=== PATIENT | female | born 1960 | race Caucasian/White ===

== ENCOUNTER 2016-08-17 05:37 | Inpatient (IN) | payer OTHER ==
[~2016-08-17] VITALS: Ht 182.9 cm; Wt 117.5 kg
[~2016-08-17 05:37] MED LIST: AMBIEN CR12.5 MG PO; AMBIEN CR6.25 MG PO; Aranesp SC; BISACODYL5 MG PO; Bactrim,Septra DS 80 PO; CIPRO250 MG PO; CIPRO500 MG PO; Cipro PO; DILAUDID2 MG PO; DILAUDID4 MG PO; DOCUSATE SODIU100 MG PO; Elavil PO; Epogen,Procrit SQ; FEOSOL325 MG PO; FLAGYL500 MG PO; FLORA-Q CAPSUL1 EACH PO; FOLVITE1 M1 PO; HUMALOG100 UNIT/2 SC; INVANZ1 GM IM; INVANZ1 GM IV; INVanz 1 gm/NaCl 0.9 IV; INVanz IV; IPRATR-ALBUTEROL3 ML IH; IRON; KEFLEX500 MG PO; LANTUS; LANTUS 10100 UNITS/ SC; LANTUS 3 M100 UNITS/ SC; LANTUS 3 M100 UNITS1 SC; LANTUS 3 M100 UNITS1 SQ; LANTUS100 UNIT/1 SC; LEVEMIR FL100 UNIT/1 SC; LIPITOR10 MG PO; Levaquin PO; METRONIDAZOLE500 MG PO; MILK OF MAGNESI10 ML PO; MULTIVITAMIN1 EAC2 PO; NABI650T PO; NON-ASPIRIN EX500 M2 PO; NOVOLOG; NOVOLOG 10100 UNITS/ SC; NOVOLOG PE100 UNITS/ SC; PERCOCET 5/31 TABLET PO; PROCRIT; PROGRAF; PROGRAF PO; PROGRAF0.5 MG PO; PYRIDIUM PO; PYRIDIUM200 MG PO; Prograf PO; Pyridium PO; RAPAMUNE; RAPAMUNE1 MG PO; ROCEPHIN1000 MG IM; SENNA8.6 MG PO; SODIUM BICARBO325 M1 PO; SODIUM BICARBO325 MG PO; Sodium Bicarbonate PO; TRAMADOL HCL50 MG PO; TYLENOL EXTRA500 MG PO; Tylenol Regular Stre PO; VALIUM5 MG PO; VANCOCIN HCL250 MG PO; VITAMIN D PO; VITAMIN D250000 UNIT PO; Vitamin B-12 PO; Vitamin D, Drisdol PO; ZINC LOZENGES PO; ZINC PO; ZOFRAN4 MG PO; ZOLPIDEM TART12.5 MG PO; ZYVOX600 MG PO; Zofran IV; Zofran PO; oxyCODONE PO
[2016-08-17 06:33] LABS: ADD MIUA? YES; BILIRUBIN NEGATIVE; BLOOD NEGATIVE; COLOR YELLOW ((YELLOW)); GLUCOSE (STRIP) NEGATIVE; KETONES NEGATIVE; LEUKOCYTES LARGE; NITRITE NEGATIVE; PROTEIN (STRIP) NEGATIVE; SPECIFIC GRAVITY 1.014 (1.000-1.030); UROBILINOGEN 0.2 MG/DL (0.2-1.0)
[2016-08-17 06:41] LABS: HEMATOCRIT 36.5 % (36.0-46.0); MCH 27.6 PG (29.0-34.0); MCHC 31.8 G/DL (30.0-36.0); MCV 86.7 FL (83-99); MEAN PLAT.VOLUME 10.1 uM^3 (9.5-12.4); PLATELET COUNT 244 K/uL (156-360); RED BLOOD COUNT 4.21 M/uL (3.80-5.20); WHITE BLOOD COUNT 12.3 K/uL (4.1-10.2)
[2016-08-17 06:45] LABS: BACTERIA RARE /HPF; EPITHELIAL CELLS RARE /HPF; HYALINE CASTS 0-5 /LPF; MUCUS NONE SEEN /LPF; UCUL ADDED? YES; WHITE BLOOD CELLS TNTC /HPF (0-5)
[2016-08-17 07:14] LABS: ANION GAP 10 MEQ/L (2-14); CHLORIDE 108 MEQ/L (99-109); POTASSIUM 4.8 MEQ/L (3.7-5.4); SAMPLE HEMOLYSIS CHECK 0; SAMPLE ICTERIC CHECK 0; SAMPLE LIPEMIA CHECK 0; SODIUM 140 MEQ/L (136-147)
[2016-08-17 07:19] LABS: GFR ESTIMATE (CALCULATED) 22 mL/min/; GLUCOSE 190 mg/dL (70-99); UREA NITROGEN (BUN) 55 mg/dL (9-23)
[2016-08-17 07:24] LABS: TROP-I INTERPRETATION NEGATIVE; TROPONIN-I < 0.01 ng/mL (0.0-0.30)
[2016-08-17] MEDS ORDERED: PROGRAF0.5 MG PO (07:57)
[2016-08-17] MEDS ORDERED: NABI650T PO (07:58)
[2016-08-17] MEDS ORDERED: ERGOCALCIF50000 UNIT PO (07:58)
[2016-08-17 11:05] VITALS: BP 125/70
[2016-08-17 16:00] VITALS: BP 118/65
[2016-08-17 19:41] VITALS: BP 120/71
[2016-08-17 23:34] VITALS: BP 115/56
[2016-08-18 03:41] VITALS: BP 135/71
[2016-08-18 07:05] VITALS: BP 109/55
[2016-08-18 07:13] LABS: EOSINOPHIL (%) 2.6 % (0-5); EOSINOPHIL COUNT 0.3 K/uL (0-0.3); IMMATURE GRANULOCYTE (%) 0.3 % (0.0-0.7); LYMPHOCYTE COUNT 2.3 K/uL (1.0-2.8); MCHC 30.9 G/DL (30.0-36.0); MONOCYTE (%) 5.7 % (3-12); MONOCYTE COUNT 0.5 K/uL (0-0.8); NEUTROPHIL (%) 66.5 % (45-76); NEUTROPHIL COUNT 6.3 K/uL (1.8-6.4); PLATELET COUNT 181 K/uL (156-360); RBC DIS.WIDTH-CV 14.4 % (11.8-14.6); RBC DIS.WIDTH-SD 47.6 % (39-53); RED BLOOD COUNT 3.64 M/uL (3.80-5.20); WHITE BLOOD COUNT 9.5 K/uL (4.1-10.2)
[2016-08-18 07:15] LABS: MCV 90.7 FL (83-99)
[2016-08-18 07:30] LABS: ANION GAP 5 MEQ/L (2-14); CHLORIDE 111 MEQ/L (99-109); GFR ESTIMATE (CALCULATED) 26 mL/min/; POTASSIUM 4.9 MEQ/L (3.7-5.4); SAMPLE HEMOLYSIS CHECK 0; SAMPLE ICTERIC CHECK 0; SAMPLE LIPEMIA CHECK 0; SODIUM 142 MEQ/L (136-147); UREA NITROGEN (BUN) 40 mg/dL (9-23)
[2016-08-18 07:34] LABS: GLUCOSE 113 mg/dL (70-99)
[2016-08-18 11:29] VITALS: BP 124/78
[2016-08-18 12:06] LABS: POINT-OF-CARE METER ID UU14162508
[2016-08-18 16:13] VITALS: BP 129/70
[2016-08-18 16:46] LABS: POINT-OF-CARE METER ID UU14162508
[2016-08-18 19:42] VITALS: BP 120/57
[2016-08-18 21:21] LABS: POINT-OF-CARE METER ID UU14162508
[2016-08-18 23:47] VITALS: BP 110/63
[2016-08-19 03:56] VITALS: BP 119/59
[2016-08-19 06:37] VITALS: BP 134/79
[2016-08-19 06:55] LABS: ABSOLUTE RETICULOCYTE CT. 0.06 M/uL (0.02-0.08); IMM.RETIC FRACTION 9.1 % (3-19); RETICULOCYTE COUNT 1.7 % (0.5-1.8)
[2016-08-19 07:04] LABS: HEMATOCRIT 30.8 % (36.0-46.0); MCH 27.8 PG (29.0-34.0); MCHC 30.8 G/DL (30.0-36.0); MCV 90.1 FL (83-99); RBC DIS.WIDTH-CV 14.3 % (11.8-14.6); RBC DIS.WIDTH-SD 47.3 % (39-53); RED BLOOD COUNT 3.42 M/uL (3.80-5.20); WHITE BLOOD COUNT 8.5 K/uL (4.1-10.2)
[2016-08-19 07:18] LABS: ALKALINE PHOSPHATASE 75 IU/L (3-129); ANION GAP 6 MEQ/L (2-14); CHLORIDE 113 MEQ/L (99-109); GFR ESTIMATE (CALCULATED) 28 mL/min/; GLUCOSE 95 mg/dL (70-99); IRON 39 MCG/DL (35-150); POTASSIUM 4.8 MEQ/L (3.7-5.4); SAMPLE HEMOLYSIS CHECK 0; SAMPLE ICTERIC CHECK 0; SAMPLE LIPEMIA CHECK 0; SODIUM 141 MEQ/L (136-147); TOTAL BILIRUBIN 0.3 MG/DL (0.0-1.0); UREA NITROGEN (BUN) 33 mg/dL (9-23)
[2016-08-19 07:56] LABS: ABS NEUTROPHIL COUNT 5.34; EOSINOPHIL ABS CT 0.25; MEAN PLAT.VOLUME 10.1 uM^3 (9.5-12.4); PLAT.SUFFICIENCY ADEQUATE; PLATELET COUNT 191 K/uL (156-360); USER ID STC
[2016-08-19 08:30] LABS: FERRITIN 585 NG/ML (10-291)
[2016-08-19 09:59] LABS: DELETE MACHINE DIFF? YES
[2016-08-19 12:22] LABS: POINT-OF-CARE METER ID UU14162508
[2016-08-19 16:16] VITALS: BP 126/68
[2016-08-19 20:00] VITALS: BP 129/69
[2016-08-19 21:28] LABS: POINT-OF-CARE METER ID UU14162508
[2016-08-20] VITALS: BP 137/66
[2016-08-20 04:00] VITALS: BP 137/84
[2016-08-20 07:10] LABS: EOSINOPHIL (%) 3.5 % (0-5); EOSINOPHIL COUNT 0.3 K/uL (0-0.3); HEMATOCRIT 30.8 % (36.0-46.0); IMMATURE GRANULOCYTE (%) 0.1 % (0.0-0.7); LYMPHOCYTE COUNT 2.4 K/uL (1.0-2.8); MCH 27.4 PG (29.0-34.0); MCHC 30.5 G/DL (30.0-36.0); MCV 89.8 FL (83-99); MEAN PLAT.VOLUME 10.3 uM^3 (9.5-12.4); MONOCYTE (%) 5.5 % (3-12); MONOCYTE COUNT 0.4 K/uL (0-0.8); NEUTROPHIL (%) 58.5 % (45-76); NEUTROPHIL COUNT 4.4 K/uL (1.8-6.4); PLATELET COUNT 186 K/uL (156-360); RBC DIS.WIDTH-CV 13.9 % (11.8-14.6); RED BLOOD COUNT 3.43 M/uL (3.80-5.20); WHITE BLOOD COUNT 7.5 K/uL (4.1-10.2)
[2016-08-20 07:36] VITALS: BP 137/63
[2016-08-20 07:43] LABS: ALKALINE PHOSPHATASE 76 IU/L (3-129); ANION GAP 7 MEQ/L (2-14); CHLORIDE 112 MEQ/L (99-109); GFR ESTIMATE (CALCULATED) 29 mL/min/; GLUCOSE 98 mg/dL (70-99); POTASSIUM 4.7 MEQ/L (3.7-5.4); SAMPLE HEMOLYSIS CHECK 0; SAMPLE ICTERIC CHECK 0; SAMPLE LIPEMIA CHECK 0; SODIUM 141 MEQ/L (136-147); UREA NITROGEN (BUN) 32 mg/dL (9-23)
[2016-08-20 08:02] LABS: TOTAL BILIRUBIN 0.2 MG/DL (0.0-1.0)
[2016-08-20 12:21] LABS: POINT-OF-CARE METER ID UU14162508
== END 2016-08-20 13:57 | disposition home or self-care (01) | DRG 690 ==
LOC: EME 05:37 → 2EAST 07:33 → EDOF 07:33 → 2EASTP 10:41 → 2EAST 08-19 16:11
PROVIDERS: Emergency Medicine; Hospitalist; Internal Medicine; Nurse Practitioner Adult Health
DX: N39.0 Urinary tract infection, site not specified (principal); N17.9 Acute kidney failure, unspecified; Z94.0 Kidney transplant status; I12.9 Hypertensive chronic kidney disease with stage 1 through stage 4 chronic kidney disease, or unspecified chronic kidney disease; N18.3 Chronic kidney disease, stage 3 (moderate); E11.22 Type 2 diabetes mellitus with diabetic chronic kidney disease; D64.9 Anemia, unspecified; E66.9 Obesity, unspecified; Z68.35 Body mass index [BMI] 35.0-35.9, adult; Z90.5 Acquired absence of kidney; Z88.0 Allergy status to penicillin; Z88.5 Allergy status to narcotic agent; Z87.440 Personal history of urinary (tract) infections
CPT/HCPCS: 71010; 80048; 80053; 81003; 82607; 82728; 82746; 82948; 83540; 83605; 84466; 84484; 85025; 85027; 85045; 87040; 87086; 93005; 99281; 99285; J1335; J1644; J1815; J2270; J2405; J7030; J7050; J7507

== ENCOUNTER 2016-09-24 11:21 | Inpatient (IN) | payer OTHER ==
[~2016-09-24] VITALS: Ht 182.9 cm; Wt 117.3 kg
[~2016-09-24 11:21] MED LIST changes: +ERGOCALCIF50000 UNIT PO
[2016-09-24 13:17] LABS: HEMATOCRIT 41.9 % (36.0-46.0); MCH 27.6 PG (29.0-34.0); MCHC 30.8 G/DL (30.0-36.0); MCV 89.5 FL (83-99); MEAN PLAT.VOLUME 10.2 uM^3 (9.5-12.4); PLATELET COUNT 267 K/uL (156-360); RBC DIS.WIDTH-CV 13.9 % (11.8-14.6); RBC DIS.WIDTH-SD 45.2 % (39-53); RED BLOOD COUNT 4.68 M/uL (3.80-5.20); WHITE BLOOD COUNT 9.3 K/uL (4.1-10.2)
[2016-09-24 13:25] LABS: CHLORIDE 111 mEq/L (99-109); POTASSIUM 4.9 mEq/L (3.7-5.4); SODIUM 138 mEq/L (136-147)
[2016-09-24 13:27] LABS: GLUCOSE 173 mg/dL (70-99)
[2016-09-24 13:28] LABS: ANION GAP 15 MEQ/L (2-14)
[2016-09-24 13:29] LABS: TOTAL BILIRUBIN 0.3 mg/dL (0.0-1.0)
[2016-09-24 13:30] LABS: ALKALINE PHOSPHATASE 95 IU/L (3-129)
[2016-09-24 13:31] LABS: GFR ESTIMATE (CALCULATED) 11 mL/min/
[2016-09-24 13:32] LABS: UREA NITROGEN (BUN) 83 mg/dL (9-23)
[2016-09-24 13:42] LABS: QUANTITATIVE HCG < 4.0 MIU/ML
[2016-09-24 13:47] LABS: LIPASE 23 U/L (1.0-51.0)
[2016-09-24 15:51] LABS: ADD MIUA? YES; BILIRUBIN NEGATIVE; BLOOD SMALL; COLOR YELLOW ((YELLOW)); GLUCOSE (STRIP) NEGATIVE; KETONES 5; LEUKOCYTES LARGE; NITRITE NEGATIVE; PROTEIN (STRIP) 30; SPECIFIC GRAVITY 1.013 (1.000-1.030); UROBILINOGEN 0.2 MG/DL (0.2-1.0)
[2016-09-24 15:59] LABS: BACTERIA RARE /HPF; EPITHELIAL CELLS 1+ /HPF; MUCUS TRACE /LPF; RED BLOOD CELLS 0-5 /HPF (0-5); UCUL ADDED? NO; WHITE BLOOD CELLS 20-30 /HPF (0-5)
[2016-09-24 16:26] LABS: CASTS PRESENT /LPF
[2016-09-24 22:21] LABS: INFLUENZA A VIRAL ANTIGEN NEGATIVE; INFLUENZA B VIRAL ANTIGEN NEGATIVE
[2016-09-24 22:49] LABS: CHLORIDE 112 mEq/L (99-109); POTASSIUM 4.3 mEq/L (3.7-5.4); SODIUM 140 mEq/L (136-147)
[2016-09-24 22:50] LABS: C DIFF TOXIN POSITIVE (NEGATIVE); PROBE CHECK PASS
[2016-09-24 22:51] LABS: GLUCOSE 115 mg/dL (70-99)
[2016-09-24 22:52] LABS: ANION GAP 12 MEQ/L (2-14)
[2016-09-24 22:55] LABS: GFR ESTIMATE (CALCULATED) 14 mL/min/; UREA NITROGEN (BUN) 79 mg/dL (9-23)
[2016-09-24 23:30] VITALS: BP 105/62
[2016-09-25 01:42] VITALS: BP 98/48
[2016-09-25 08:21] LABS: ANION GAP 13 MEQ/L (2-14); CHLORIDE 113 MEQ/L (99-109); GFR ESTIMATE (CALCULATED) 14 mL/min/; GLUCOSE 96 mg/dL (70-99); POTASSIUM 4.6 MEQ/L (3.7-5.4); SAMPLE HEMOLYSIS CHECK 0; SAMPLE ICTERIC CHECK 0; SAMPLE LIPEMIA CHECK 0; SODIUM 141 MEQ/L (136-147); UREA NITROGEN (BUN) 75 mg/dL (9-23)
[2016-09-25 08:30] VITALS: BP 128/60
[2016-09-25 11:44] LABS: IRON 45 MCG/DL (35-150)
[2016-09-25 11:59] LABS: URIC ACID 14.9 mg/dL (3.1-9.2)
[2016-09-25 12:23] VITALS: BP 118/80
[2016-09-25 15:51] VITALS: BP 128/66
[2016-09-25 17:07] LABS: ANION GAP 11 MEQ/L (2-14); CHLORIDE 113 MEQ/L (99-109); POTASSIUM 4.5 MEQ/L (3.7-5.4); SAMPLE HEMOLYSIS CHECK 0; SAMPLE ICTERIC CHECK 0; SAMPLE LIPEMIA CHECK 0; SODIUM 142 MEQ/L (136-147)
[2016-09-25 17:13] LABS: GFR ESTIMATE (CALCULATED) 17 mL/min/; GLUCOSE 98 mg/dL (70-99); UREA NITROGEN (BUN) 69 mg/dL (9-23)
[2016-09-25 20:01] VITALS: BP 128/60
[2016-09-25 22:46] LABS: ANION GAP 12 MEQ/L (2-14); CHLORIDE 113 MEQ/L (99-109); POTASSIUM 4.7 MEQ/L (3.7-5.4); SAMPLE HEMOLYSIS CHECK 0; SAMPLE ICTERIC CHECK 0; SAMPLE LIPEMIA CHECK 0; SODIUM 141 MEQ/L (136-147)
[2016-09-25 22:51] LABS: GFR ESTIMATE (CALCULATED) 17 mL/min/; GLUCOSE 105 mg/dL (70-99); UREA NITROGEN (BUN) 65 mg/dL (9-23)
[2016-09-25 23:20] VITALS: BP 118/58
[2016-09-26 04:04] VITALS: BP 136/63
[2016-09-26 04:49] LABS: EOSINOPHIL (%) 1.4 % (0-5); EOSINOPHIL COUNT 0.1 K/uL (0-0.3); HEMATOCRIT 34.2 % (36.0-46.0); IMMATURE GRANULOCYTE (%) 0.4 % (0.0-0.7); INSTRUMENT ABS NEUTROPHIL CT 4.3 K/uL; LYMPHOCYTE COUNT 2.1 K/uL (1.0-2.8); MCH 27.6 PG (29.0-34.0); MCHC 31.3 G/DL (30.0-36.0); MCV 88.1 FL (83-99); MEAN PLAT.VOLUME 10.1 uM^3 (9.5-12.4); MONOCYTE (%) 7.4 % (3-12); MONOCYTE COUNT 0.5 K/uL (0-0.8); NEUTROPHIL (%) 61.1 % (45-76); NEUTROPHIL COUNT 4.3 K/uL (1.8-6.4); PLATELET COUNT 223 K/uL (156-360); RBC DIS.WIDTH-CV 13.9 % (11.8-14.6); RED BLOOD COUNT 3.88 M/uL (3.80-5.20); WHITE BLOOD COUNT 7.1 K/uL (4.1-10.2)
[2016-09-26 04:56] LABS: CHLORIDE 114 mEq/L (99-109); POTASSIUM 4.6 mEq/L (3.7-5.4); SODIUM 143 mEq/L (136-147)
[2016-09-26 04:57] LABS: MAGNESIUM 1.4 mg/dL (1.3-2.7)
[2016-09-26 04:58] LABS: GLUCOSE 110 mg/dL (70-99)
[2016-09-26 05:00] LABS: ANION GAP 11 MEQ/L (2-14)
[2016-09-26 05:02] LABS: GFR ESTIMATE (CALCULATED) 17 mL/min/
[2016-09-26 05:03] LABS: UREA NITROGEN (BUN) 65 mg/dL (9-23)
[2016-09-26 07:45] LABS: INTACT PARATHYROID HORMONE 264 pg/mL (10-69)
[2016-09-26 08:43] VITALS: BP 147/85
[2016-09-26 12:33] VITALS: BP 120/75
[2016-09-26 16:54] VITALS: BP 121/72
[2016-09-26 21:27] LABS: POINT-OF-CARE METER ID UU14162508
[2016-09-27 08:00] VITALS: BP 124/74
[2016-09-27 08:34] LABS: HEMATOCRIT 30.1 % (36.0-46.0); MCH 27.4 PG (29.0-34.0); MCHC 30.9 G/DL (30.0-36.0); MCV 88.8 FL (83-99); MEAN PLAT.VOLUME 10.2 uM^3 (9.5-12.4); PLATELET COUNT 190 K/uL (156-360); RBC DIS.WIDTH-SD 45.3 % (39-53); RED BLOOD COUNT 3.39 M/uL (3.80-5.20); WHITE BLOOD COUNT 6.4 K/uL (4.1-10.2)
[2016-09-27 09:06] LABS: ANION GAP 10 MEQ/L (2-14); CHLORIDE 113 MEQ/L (99-109); GFR ESTIMATE (CALCULATED) 20 mL/min/; GLUCOSE 137 mg/dL (70-99); MAGNESIUM 1.4 mg/dl (1.3-2.7); POTASSIUM 4.2 MEQ/L (3.7-5.4); SAMPLE HEMOLYSIS CHECK 0; SAMPLE ICTERIC CHECK 0; SAMPLE LIPEMIA CHECK 0; SODIUM 145 MEQ/L (136-147); UREA NITROGEN (BUN) 50 mg/dL (9-23)
[2016-09-27] MEDS ORDERED: VANCOMYCIN HCL125 MG PO (09:31)
[2016-09-27 09:52] LABS: EOSINOPHIL (%) 3.5 % (0-5); EOSINOPHIL COUNT 0.2 K/uL (0-0.3); HEMATOLOGY COMMENT 1 SMEAR COMPATIBLE; IMMATURE GRANULOCYTE (%) 0.3 % (0.0-0.7); INSTRUMENT ABS NEUTROPHIL CT 3.5 K/uL; LYMPHOCYTE COUNT 2.2 K/uL (1.0-2.8); MONOCYTE (%) 6.6 % (3-12); MONOCYTE COUNT 0.4 K/uL (0-0.8); NEUTROPHIL (%) 55.6 % (45-76); NEUTROPHIL COUNT 3.5 K/uL (1.8-6.4)
[2016-09-27 11:30] LABS: POINT-OF-CARE METER ID UU14162508
== END 2016-09-27 13:32 | disposition home or self-care (01) | DRG 372 ==
LOC: EME 11:21 → 2EAST 21:01 → EDOF 21:01 → 2EAST 23:08
PROVIDERS: Family Medicine; Hospitalist; Internal Medicine Nephrology
DX: A04.7 Enterocolitis due to Clostridium difficile (principal); E11.22 Type 2 diabetes mellitus with diabetic chronic kidney disease; E87.2 Acidosis; N17.9 Acute kidney failure, unspecified; E66.9 Obesity, unspecified; N18.4 Chronic kidney disease, stage 4 (severe); D63.1 Anemia in chronic kidney disease; Z94.0 Kidney transplant status; I12.9 Hypertensive chronic kidney disease with stage 1 through stage 4 chronic kidney disease, or unspecified chronic kidney disease; Z87.440 Personal history of urinary (tract) infections; E55.9 Vitamin D deficiency, unspecified; E86.0 Dehydration; Z68.35 Body mass index [BMI] 35.0-35.9, adult; K56.7 Ileus, unspecified
CPT/HCPCS: 76776; 80048 91; 80053; 80069; 81003; 82306; 82607; 82746; 82948; 83540; 83605; 83690; 83735; 83970; 84466; 84550; 84702; 85025; 85027; 87040; 87086; 87177; 87206; 87329; 87493; 87502; 87506; 99281; 99285; J1335; J1644; J1815; J2270; J2405; J3010; J7030; J7050; J7070; J7120; J7507; S0030

== ENCOUNTER 2017-04-23 05:46 | Inpatient (IN) | payer OTHER ==
[~2017-04-23] VITALS: Ht 182.9 cm; Wt 120.9 kg
[~2017-04-23 05:46] MED LIST changes: +VANCOMYCIN HCL125 MG PO
[2017-04-23 06:56] LABS: EOSINOPHIL (%) 0.6 % (0-5); EOSINOPHIL COUNT 0.2 K/uL (0-0.3); HEMATOCRIT 36.8 % (36.0-46.0); IMMATURE GRANULOCYTE (%) 0.5 % (0.0-0.7); IMMATURE GRANULOCYTE COUNT 0.1 K/uL; INSTRUMENT ABS NEUTROPHIL CT 20.9 K/uL; LYMPHOCYTE COUNT 1.4 K/uL (1.0-2.8); MCH 27.9 PG (29.0-34.0); MCHC 32.1 G/DL (30.0-36.0); MEAN PLAT.VOLUME 9.8 uM^3 (9.5-12.4); MONOCYTE (%) 4.8 % (3-12); MONOCYTE COUNT 1.1 K/uL (0-0.8); NEUTROPHIL COUNT 20.9 K/uL (1.8-6.4); PLATELET COUNT 279 K/uL (156-360); RBC DIS.WIDTH-CV 12.8 % (11.8-14.6); RBC DIS.WIDTH-SD 40.6 % (39-53); RED BLOOD COUNT 4.23 M/uL (3.80-5.20); WHITE BLOOD COUNT 23.7 K/uL (4.1-10.2)
[2017-04-23 07:24] LABS: ALKALINE PHOSPHATASE 88 IU/L (3-129); ANION GAP 13 MEQ/L (2-14); CHLORIDE 107 MEQ/L (99-109); GFR ESTIMATE (CALCULATED) 23 mL/min/; GLUCOSE 169 mg/dL (70-99); POTASSIUM 5.1 MEQ/L (3.7-5.4); SAMPLE HEMOLYSIS CHECK 0; SAMPLE ICTERIC CHECK 0; SAMPLE LIPEMIA CHECK 0; SODIUM 139 MEQ/L (136-147); TOTAL BILIRUBIN 0.4 MG/DL (0.0-1.0); UREA NITROGEN (BUN) 51 mg/dL (9-23)
[2017-04-23 07:33] LABS: TROP-I INTERPRETATION NEGATIVE; TROPONIN-I 0.02 ng/mL (0.0-0.30)
[2017-04-23 07:39] LABS: ADD MIUA? YES; BILIRUBIN NEGATIVE; BLOOD MODERATE; COLOR YELLOW ((YELLOW)); GLUCOSE (STRIP) NEGATIVE; KETONES NEGATIVE; LEUKOCYTES LARGE; NITRITE NEGATIVE; PROTEIN (STRIP) 100; SPECIFIC GRAVITY 1.013 (1.000-1.030); UROBILINOGEN 0.2 MG/DL (0.2-1.0)
[2017-04-23 07:54] LABS: WHITE BLOOD CELLS TNTC /HPF (0-5)
[2017-04-23 07:55] LABS: EPITHELIAL CELLS 1+ /HPF; MUCUS NONE SEEN /LPF
[2017-04-23 07:56] LABS: BACTERIA 1+ /HPF; CASTS NONE SEEN /LPF; CRYSTALS NONE SEEN; UCUL ADDED? YES
[2017-04-23] MEDS ORDERED: DIFICID200 MG PO (08:54)
[2017-04-23] MEDS ORDERED: SODIUM BICARBO325 MG PO (08:55)
[2017-04-23] MEDS ORDERED: HUMALOG100 UNIT/2 SC (08:56)
[2017-04-23 10:00] VITALS: BP 107/56
[2017-04-23 11:30] LABS: POINT-OF-CARE METER ID UU13113725
[2017-04-23 16:03] LABS: POINT-OF-CARE METER ID UU13113725
[2017-04-23 16:33] VITALS: BP 110/60
[2017-04-23 19:27] VITALS: BP 128/60
[2017-04-23 20:42] LABS: C DIFF TOXIN NEGATIVE (NEGATIVE)
[2017-04-23 20:43] LABS: PROBE CHECK PASS; SPECIMEN PROCESSING CONTROL PASS
[2017-04-23 21:12] LABS: POINT-OF-CARE METER ID UU13113774
[2017-04-23 23:44] VITALS: BP 127/63
[2017-04-24 06:18] LABS: POINT-OF-CARE METER ID UU13113774
[2017-04-24 06:36] LABS: MCH 27.7 PG (29.0-34.0); MCHC 31.1 G/DL (30.0-36.0); MCV 89.1 FL (83-99); RBC DIS.WIDTH-CV 12.8 % (11.8-14.6); RBC DIS.WIDTH-SD 42.2 % (39-53); RED BLOOD COUNT 3.93 M/uL (3.80-5.20); WHITE BLOOD COUNT 11.8 K/uL (4.1-10.2)
[2017-04-24 07:01] LABS: ANION GAP 9 MEQ/L (2-14); CHLORIDE 115 MEQ/L (99-109); GFR ESTIMATE (CALCULATED) 22 mL/min/; POTASSIUM 5.2 MEQ/L (3.7-5.4); SAMPLE HEMOLYSIS CHECK 0; SAMPLE ICTERIC CHECK 0; SAMPLE LIPEMIA CHECK 0; SODIUM 143 MEQ/L (136-147); UREA NITROGEN (BUN) 41 mg/dL (9-23)
[2017-04-24 07:02] LABS: GLUCOSE 100 mg/dL (70-99)
[2017-04-24 08:14] LABS: PLATELET COUNT 171 K/uL (156-360)
[2017-04-24 08:54] VITALS: BP 114/68
[2017-04-24 11:28] LABS: POINT-OF-CARE METER ID UU13113774
[2017-04-24 12:00] VITALS: BP 116/74
[2017-04-24] MEDS ORDERED: INVANZ1 GM IV (14:53)
== END 2017-04-24 15:57 | disposition home or self-care (01) | DRG 872 ==
LOC: EME 05:46 → 5EAST 08:14 → EDOF 08:14 → ENRESERV 08:15 → 5EAST 09:37
PROVIDERS: Emergency Medicine; Internal Medicine
DX: A41.9 Sepsis, unspecified organism (principal); N10 Acute pyelonephritis; E87.2 Acidosis; E87.5 Hyperkalemia; A04.72 Enterocolitis due to Clostridium difficile, not specified as recurrent; E11.22 Type 2 diabetes mellitus with diabetic chronic kidney disease; Z94.0 Kidney transplant status; I12.9 Hypertensive chronic kidney disease with stage 1 through stage 4 chronic kidney disease, or unspecified chronic kidney disease; N18.3 Chronic kidney disease, stage 3 (moderate); D63.8 Anemia in other chronic diseases classified elsewhere; E78.5 Hyperlipidemia, unspecified; E66.9 Obesity, unspecified; Z68.36 Body mass index [BMI] 36.0-36.9, adult; Z79.4 Long term (current) use of insulin; Z87.440 Personal history of urinary (tract) infections; Z87.442 Personal history of urinary calculi; Z86.19 Personal history of other infectious and parasitic diseases; Z82.71 Family history of polycystic kidney; Z80.1 Family history of malignant neoplasm of trachea, bronchus and lung; Z90.5 Acquired absence of kidney; Z88.0 Allergy status to penicillin; Z88.5 Allergy status to narcotic agent
CPT/HCPCS: 71010; 74176; 80048; 80053; 80197 90; 81003; 82948; 83605; 84484; 85025; 85027; 87040; 87086; 87493; 99281; 99285; J1335; J1644; J1815; J2405; J3010; J7030; J7050; J7507; S0028